=== PATIENT | male | born 1970 | race Caucasian/White ===

== ENCOUNTER 2017-06-26 04:32 | Emergency (ER) | payer OTHER ==
[~2017-06-26] VITALS: Ht 185.4 cm; Wt 179.2 kg
[~2017-06-26 04:32] MED LIST: AMBIEN10 MG PO; FISH OIL 1,4001 EACH PO; NEXIUM40 MG PO; ZYRTEC10 MG PO
[2017-06-26] MEDS ORDERED: ASPIRIN 81 MG CHEW TAB PO ONE (05:00)
[2017-06-26 05:09] LABS: BASOPHILS # (AUTO) 0.1 (0.0-0.1); BASOPHILS % 0.6 % (0.0-1.0); EOSINOPHILS # (AUTO) 0.1 (0.0-0.4); EOSINOPHILS % 0.7 % (0.0-6.0); HEMATOCRIT 56.3 % (38.2-49.6); HEMOGLOBIN 17.3 g/dL (14.0-18.0); KETONES,URINE TRACE (NEGATIVE); LEUKOCYTE ESTERASE ,URINE 1+ (NEGATIVE); LYMPHOCYTES # (AUTO) 1.8 (1.0-3.2); MEAN CORPUSCULAR HEMOGLOBIN 25.6 pg (28-32); MEAN CORPUSCULAR HGB CONC 30.7 g/dL (31-35); MEAN CORPUSCULAR VOLUME 83.3 fL (81-99); MONOCYTES # (AUTO) 1.1 (0.2-0.8); MONOCYTES % 8.1 % (4.4-11.3); NEUTROPHILS # (AUTO) 10.3 (2.1-6.9); NEUTROPHILS % 76.4 % (38.7-80.0); NITRITE,URINE NEGATIVE (NEGATIVE); PLATELET COUNT 323 x10e3/uL (140-360); RED BLOOD COUNT 6.76 x10e6/uL (4.3-5.7); RED CELL DISTRIBUTION WIDTH 19.6 % (11.7-14.4); URINE UROBILINOGEN 4 mg/dL (0.2 - 1)
[2017-06-26 05:10] LABS: BILIRUBIN,URINE 1+ (NEGATIVE); CLARITY,URINE CLEAR (CLEAR); COLOR,URINE AMBER (YELLOW); PROTEIN,URINE DIPSTICK 1+ (NEGATIVE)
[2017-06-26 05:15] LABS: BACTERIA,URINE FEW /HPF; EPITHELIAL CELLS,URINE FEW /LPF; RBC,URINE 0-5 /HPF (0-5)
[2017-06-26 05:18] LABS: INR 0.91; PARTIAL THROMBOPLASTIN TIME 23.9 seconds (23.8-35.5); PROTHROMBIN TIME 12.7 seconds (11.9-14.5)
[2017-06-26 05:27] LABS: ALBUMIN 3.5 g/dL (3.5-5.0); ANION GAP 12.5 mmol/L (8-16); CALCIUM 8.6 mg/dL (8.4-10.2); CREATININE, SERUM 1.39 mg/dL (0.72-1.25); POTASSIUM 4.5 mmol/L (3.5-5.1)
[2017-06-26 05:33] LABS: TROPONIN I 0.007 ng/mL (0-0.300)
--- NOTE | 2017-06-26 05:36 | Diagnostic Imaging Report ---
EXAM: CHEST 2 VIEWS, PA and lateral ORDER DATE: 06/26/2017 4:59 AM TIME STAMP ON EXAM: 0508 hours INDICATION: Left chest wall pain COMPARISON: None FINDINGS: Limited lateral view secondary to motion. LINES/TUBES: None LUNGS: No consolidations or edema. PLEURA: No effusions or pneumothorax. HEART AND MEDIASTINUM: Normal size and contour. BONES AND SOFT TISSUES: Healing left lateral eighth rib fracture. IMPRESSION: No acute cardiopulmonary abnormality. Healing left lateral eighth rib fracture. Signed by: Dr. Lita Mack M.D. on 06/26/2017 5:33 AM
[2017-06-26] MEDS ORDERED: KETOROLAC TROMETHAMINE 30 MG/ML VIAL IV STA (06:24)
[2017-06-26] MEDS ORDERED: CEFTRIAXONE SOD 1 GM VIAL IV STA (06:26)
[2017-06-26] MEDS ORDERED: SODIUM CHLORIDE 0.9% 500ML 500 ML IV ONE (06:30)
--- NOTE | 2017-06-26 07:23 | Diagnostic Imaging Report ---
PROCEDURE: CT ABDOMEN AND PELVIS WITHOUT CONTRAST COMPARISON:None. INDICATIONS:Left flank pain. Stone protocol. TECHNIQUE: Stone protocol Volumetric CT abdomen and pelvis. No intravenous or enteric contrast. Multiplanar reformatted images. DLP: 1392.01 FINDINGS: Clear lung bases. No pleural effusions. Normal heart size. Liver: Normal Gallbladder: Normal. No bile duct dilation. Pancreas: Normal Spleen: Span 17 cm. Otherwise, normal Adrenal glands: Normal Kidneys: Normal. No stones. Multiple punctate vascular calcifications (for example, image 84, series 3). Ureters and urinary bladder: Normal Prostate and seminal vesicles: Normal Bowel: Normal caliber. Diverticulosis predominantly in the descending and sigmoid colon. Peritoneum: Normal Vasculature: Normal caliber. Mild scattered atherosclerosis. Skeleton: Intact. Soft tissues: Midline superficial scar. Otherwise, normal. Study limitations: Body habitus resulting gantry abutment with subsequent photon deprivation and beam hardening artifact. CONCLUSION: 1. No evidence of nephrolithiasis. 2. Splenomegaly. 3. Diverticulosis. No evidence of diverticulitis. Dictated by: Sher Chase M.D. on 06/26/2017 at 7:33 Electronically approved by: Sher Chase M.D. on 06/26/2017 at 7:33
== END 2017-06-26 08:23 | disposition home or self-care (01) ==
LOC: ER 04:32
DX: R07.89 Other chest pain (principal); R05 Cough; J20.9 Acute bronchitis, unspecified; S22.32XA Fracture of one rib, left side, initial encounter for closed fracture; R10.9 Unspecified abdominal pain; N30.90 Cystitis, unspecified without hematuria
CPT/HCPCS: 36415; 71020; 74176; 80053; 81001; 82550; 82553; 83735; 83880; 84484; 85025; 85379; 85610; 85730; 87086; 93005; 99284; J0696; J1885; J7040; 71046

== ENCOUNTER → 2017-10-08 | Day surgery (SDC) | payer OTHER ==
[2017-10-07 11:49] LABS: BASOPHILS # (AUTO) 0.1 (0.0-0.1); BASOPHILS % 0.5 % (0.0-1.0); EOSINOPHILS # (AUTO) 0.1 (0.0-0.4); HEMATOCRIT 52.1 % (38.2-49.6); HEMOGLOBIN 16.1 g/dL (14.0-18.0); LYMPHOCYTES # (AUTO) 1.6 (1.0-3.2); LYMPHOCYTES % 16.8 % (18.0-39.1); MEAN CORPUSCULAR HEMOGLOBIN 25.5 pg (28-32); MEAN CORPUSCULAR HGB CONC 30.9 g/dL (31-35); MEAN CORPUSCULAR VOLUME 82.4 fL (81-99); MONOCYTES # (AUTO) 0.9 (0.2-0.8); MONOCYTES % 9.2 % (4.4-11.3); NEUTROPHILS % 71.9 % (38.7-80.0); PLATELET COUNT 250 x10e3/uL (140-360); RED BLOOD COUNT 6.32 x10e6/uL (4.3-5.7)
[2017-10-07 11:59] LABS: INR 0.99; PROTHROMBIN TIME 12.3 seconds (11.9-14.5)
[2017-10-07 12:09] LABS: ALANINE AMINOTRANSFERASE 39 IU/L (0-55); ALBUMIN 3.4 g/dL (3.5-5.0); ALBUMIN/GLOBULIN RATIO 0.9 (0.8-2.0); ALKALINE PHOSPHATASE 96 IU/L (40-150); ANION GAP 10.4 mmol/L (8-16); BLOOD UREA NITROGEN 13 mg/dL (7-26); BUN/CREATININE RATIO 10 (6-25); CALCIUM 9.3 mg/dL (8.4-10.2); CARBON DIOXIDE 31 mmol/L (22-29); CHLORIDE 104 mmol/L (98-107); CHOL/HDL RATIO 5.3 (3.9-4.7); CHOLESTEROL 160 MD/DL (0-199); CREATININE, SERUM 1.24 mg/dL (0.72-1.25); EST GLOMERULAR FILTRATION RATE > 60 ML/MIN (60-); GLUCOSE 100 mg/dL (74-118); HDL CHOLESTEROL 30 MG/DL (40-60); LDL CHOLESTEROL 93 MG/DL (60-130); POTASSIUM 4.4 mmol/L (3.5-5.1); SODIUM 141 mmol/L (136-145); TRIGLYCERIDES 186 MG/DL (0-149)
[2017-10-08] VITALS (7 sets, daily range): BP systolic 114–142; BP diastolic 73–101
[~2017-10-08] VITALS: Ht 185.4 cm; Wt 172.4 kg
[~2017-10-08] MED LIST changes: +ASPIRIN325 MG PO; +DEXILANT60 MG PO; +FENTANYL CITRATE/PF 100MCG/2 ML INJ ONE; +FISH OIL 1,2001 EACH PO; +FUROSEMIDE40 MG PO; +HEPARIN SOD (PORCINE) 1000 UNIT/ML 30ML ONE; +HEPARIN SOD/SOD CHLORIDE 0 ML ONE; +HEPARIN SOD/SOD CHLORIDE 2,000 ML ONE; +IOPAMIDOL 370 MG/ML 200 ML INFUS..BTL INJ ONE; +LIDOCAINE HCL 2% LOCAL 20 ML VIAL ONE; +MIDAZOLAM HCL 2 MG/2 ML VIAL ONE; +MILK THISTLE500 MG PO; +MULTIVITAMINS1 EAC7 PO; +NITROGLYCERIN/D5W 200 MCG/ML 250 ML ONE; +RANITIDINE HCL150 MG PO; +SODIUM CHLORIDE 0.9% 1000ML 1,000 ML ONE; +TESTOSTERO100 MG/1 M IM; +VERAPAMIL HCL 2.5 MG/ML 2 ML VIAL ONE; +[UNRECOGNIZED DRUG - OTHER] PO
--- OUTSIDE RECORDS SUMMARY | 2017-10-08 10:09 | XMS REPORT | Continuity of Care Document ---
Author Author [facility] Organization [facility] Address [address] [place] [address] Phone Unavailable Care Team Providers Care Freelance Recruiter Name Role Phone AMEENA HOANG MD PCP Insurance Providers Guarantor Lydia Terrazas Address [address] [place] [address] Email [email or web address] Payer [employer] Pos Policy Number [id number] Subscriber's Name Lydia Terrazas Relationship 18 Self / Same As Patient Group Number [id number] Group Name [employer] Effective Date 13 Advance Directives Directive Response Recorded Date/Time Does the patient have an advance directive? No 07/11/09 6:03am If yes, is advance directive on file with [facility]? No 07/11/09 6:03am If not on file with [facility] will patient provide a copy? No 08/25/16 1:42am Do you have a Directive to Physician? No 06/26/17 6:41am Do you have a Medical Power of Commercial Correspondent? No 06/26/17 6:41am Do you have an out of hospital Do Not Resuscitate Order? No 06/26/17 6:41am Do you have any special needs we should be aware of? No 06/26/17 6:41am Do you have a support person here with you today? No 06/26/17 6:41am Did patient receive Notice of Privacy Practices? Yes 06/26/17 6:41am Did patient receive patient rights and responsibilities? Yes 06/26/17 6:41am Problems No problem information available. Medications Current Home Medications Medication Dose Units Route Directions Days Qty Instructions Start Date Cetirizine Hcl (Zyrtec) 10 Mg Tablet 10 Mg Oral Daily THERAPEUTICALLY SUBSTITUTED WITH LORATADINE 10MG Esomeprazole Magnesium (Nexium) 40 Mg Capsule. 40 Mg Oral Daily PROTONIX THERAPEUTIC SUBSTITUTE FOR NEXIUM PER [facility] [place]-3/Dha/Epa/Fish Oil (Fish Oil 1,400 Mg Softgel) 1 Each Capsule. 2 Cap Oral Daily Zolpidem Tartrate (Ambien) 10 Mg Tablet 10 Mg Oral Bedtime as needed for Sleep 30 Tab Social History No social history information available. Hospital Discharge Instructions No hospital discharge instruction information available. Plan of Care Discharge Date 06/26/17 8:23am Disposition HOME, SELF-CARE Condition at Discharge Stable Instructions/Education Provided Bronchitis (Acute) - Adult Fractures - Rib Urinary Tract Infection - Men Forms Provided Work/School Excuse Prescriptions See Medication Section Referrals AMEENA HOANG MD Address: [address] [place] [id number] Additional Instructions/Education FOLLOW UP WITH PCP IN 3 DAYS. DRINK PLENTY OF FLUIDS. Functional Status No functional status information available. Allergies, Adverse Reactions, Alerts Allergen Type Severity Reaction Status Last Updated No Known Drug Allergies Allergy Mild Active 07/11/09 Immunizations No immunization information available. Vital Signs Acute Vital Signs Vital Response Date/Time Temperature (Fahrenheit) 97.5 degrees F (97.6 - 99.5) 03/03/2017 8:18pm Pulse Pulse Rate (adult) 80 bpm (60 - 90) 03/03/2017 8:18pm Respiratory Rate 14 bpm (12 - 24) 03/03/2017 8:18pm Blood Pressure 142/91 mm Hg 03/03/2017 8:18pm Height 6 ft 1 in 06/26/2017 4:40am Weight 395 lb 06/26/2017 4:40am Body Mass Index 52.1 kg/m^2 06/26/2017 4:40am Results Laboratory Results Test Name Result Units Flags Reference Collection Date/Time Result Date/ Time Comments White Blood Count 13.43 x10e3/uL H 4.8-10.8 06/26/2017 4:452017 5:10am Red Blood Count 6.76 x10e6/uL H 4.3-5.7 06/26/2017 4:4506/26/2017 5: 10am Hemoglobin 17.3 g/dL 14.0-18.0 06/26/2017 4:4506/26/2017 5:10am Hematocrit 56.3 % H 38.2-49.6 06/26/2017 4:4506/26/2017 5:10am Mean Corpuscular Volume 83.3 fL 81-99 06/26/2017 4:06/26/2017 5: 10am Mean Corpuscular Hemoglobin 25.6 pg L 28-32 06/26/2017 4:452017 5:10am Mean Corpuscular Hemoglobin Concent 30.7 g/dL L 31-35 06/26/2017 4:06/26/2017 5:10am Red Cell Distribution Width 19.6 % H 11.7-14.4 06/26/2017 4:2017 5:10am Platelet Count 323 x10e3/uL 140-360 06/26/2017 4:06/26/2017 5: 10am Neutrophils (%) (Auto) 76.4 % 38.7-80.0 06/26/2017 4:06/26/2017 5: 10am Lymphocytes (%) (Auto) 13.0 % L 18.0-39.1 06/26/2017 4:06/26/2017 5 :10am Monocytes (%) (Auto) 8.1 % 4.4-11.3 06/26/2017 4:06/26/2017 5: 10am Eosinophils (%) (Auto) 0.7 % 0.0-6.0 06/26/2017 4:06/26/2017 5: 10am Basophils (%) (Auto) 0.6 % 0.0-1.0 06/26/2017 4:4506/26/2017 5:10am IM GRANULOCYTES % 1.2 % H 0.0-1.0 06/26/2017 4:45am 06/26/2017 5:10am Neutrophils # (Auto) 10.3 H 2.1-6.9 06/26/2017 4:45am 06/26/2017 5: 10am Lymphocytes # (Auto) 1.8 1.0-3.2 06/26/2017 4:45am 06/26/2017 5:10am Monocytes # (Auto) 1.1 H 0.2-0.8 06/26/2017 4:45am 06/26/2017 5:10am Eosinophils # (Auto) 0.1 0.0-0.4 06/26/2017 4:45am 06/26/2017 5:10am Basophils # (Auto) 0.1 0.0-0.1 06/26/2017 4:45am 06/26/2017 5:10am Absolute Immature Granulocyte (auto 0.16 x10e3/uL H 0-0.1 06/26/2017 4: 45am 06/26/2017 5:10am Prothrombin Time 12.7 seconds 11.9-14.5 06/26/2017 4:45am 06/26/2017 5: 19am Prothromb Time International Ratio 0.91 06/26/2017 4:45am 2017 5:19am Oral Anticoagulant Therapy INR Values: 1. Low Intensity Therapy 1.5 - 2.0 2. Moderate Intensity Therapy 2.0 - 3.0 3. High Intensity Therapy(1) 2.5 - 3.5 4. High Intensity Therapy(2) 3.0 - 4.0 5. Panic Value INR > 5.0 Activated Partial Thromboplast Time 23.9 seconds 23.8-35.5 06/26/2017 4: 45am 06/26/2017 5:19am D-Dimer Quantitative (PE/DVT) 0.21 ug/mLFEU 0.00-0.45 06/26/2017 5:55am 06/26/2017 6:07am Urine Color MYRIAM H YELLOW 06/26/2017 4:45am 06/26/2017 5:10am Urine Clarity CLEAR CLEAR 06/26/2017 4:45am 06/26/2017 5:10am Urine Specific [place] 1.015 1.010-1.025 06/26/2017 4:45am 2017 5:10am Urine pH 6.5 5 - 7 06/26/2017 4:45am 06/26/2017 5:10am Urine Leukocyte Esterase 1+ H NEGATIVE 06/26/2017 4:45am 06/26/2017 5: 10am Urine Nitrite NEGATIVE NEGATIVE 06/26/2017 4:45am 06/26/2017 5:10am Urine Protein 1+ H NEGATIVE 06/26/2017 4:45am 06/26/2017 5:10am Urine Glucose (UA) NEGATIVE NEGATIVE 06/26/2017 4:45am 06/26/2017 5: 10am Urine Ketones TRACE H NEGATIVE 06/26/2017 4:45am 06/26/2017 5:10am Urine Urobilinogen 4 mg/dL H 0.2 - 1 06/26/2017 4:45am 06/26/2017 5: 10am Urine Bilirubin 1+ H NEGATIVE 06/26/2017 4:45am 06/26/2017 5:10am Confirmatory test currently unavailable. False positive results may occur. Urine Blood TRACE H NEGATIVE 06/26/2017 4:45am 06/26/2017 5:10am Urine WBC 6-10 /HPF H 0-5 06/26/2017 4:45am 06/26/2017 5:16am Urine RBC 0-5 /HPF 0-5 06/26/2017 4:45am 06/26/2017 5:16am Urine Bacteria FEW /HPF NONE 06/26/2017 4:45am 06/26/2017 5:16am Urine Epithelial Cells FEW /LPF NONE 06/26/2017 4:45am 06/26/2017 5: 16am Sodium Level 139 mmol/L 136-145 06/26/2017 4:45am 06/26/2017 5:30am Potassium Level 4.5 mmol/L 3.5-5.1 06/26/2017 4:45am 06/26/2017 5:30am Chloride Level 103 mmol/L 98-107 06/26/2017 4:45am 06/26/2017 5:30am Carbon Dioxide Level 28 mmol/L 22-29 06/26/2017 4:45am 06/26/2017 5: 30am Anion Gap 12.5 mmol/L 8-16 06/26/2017 4:45am 06/26/2017 5:30am Blood Urea Nitrogen 13 mg/dL 7-26 06/26/2017 4:4506/26/2017 5:30am Creatinine 1.39 mg/dL H 0.72-1.25 06/26/2017 4:45am 06/26/2017 5:30am BUN/Creatinine Ratio 9 6-25 06/26/2017 4:45am 06/26/2017 5:30am Estimat Glomerular Filtration Rate 55 ML/MIN L 60- 06/26/2017 4:45am 5:30am Ranges were taken from the National Kidney Disease Education Program and the National Kidney Foundation literature. Reference ranges: 60 or greater: Normal 16-59 (for 3 consecutive months): Chronic kidney disease 15 or less: Kidney failure Glucose Level 103 mg/dL 74-118 06/26/2017 4:45am 06/26/2017 5:30am Calcium Level 8.6 mg/dL 8.4-10.2 06/26/2017 4:4506/26/2017 5:30am Magnesium Level 2.2 MG/DL H 1.3-2.1 06/26/2017 4:4506/26/2017 5:22am Total Bilirubin 1.0 mg/dL 0.2-1.2 06/26/2017 4:4506/26/2017 5:30am Aspartate Amino Transf (AST/SGOT) 34 IU/L 5-34 06/26/2017 4:45am 2017 5:30am Alanine Aminotransferase (ALT/SGPT) 62 IU/L H 0-55 06/26/2017 4:45 5:30am Total Protein 7.0 g/dL 6.5-8.1 06/26/2017 4:45am 06/26/2017 5:30am Albumin 3.5 g/dL 3.5-5.0 06/26/2017 4:4506/26/2017 5:30am Globulin 3.5 g/dL 2.3-3.5 06/26/2017 4:45am 06/26/2017 5:30am Albumin/Globulin Ratio 1.0 0.8-2.0 06/26/2017 4:4506/26/2017 5: 30am Alkaline Phosphatase 69 IU/L 40-150 06/26/2017 4:45am 06/26/2017 5: 30am B-Type Natriuretic Peptide < 10.0 pg/mL 0-100 06/26/2017 4:45am 2017 5:30am Creatine Kinase 153 IU/L 30-200 06/26/2017 4:45am 06/26/2017 5:30am Creatine Kinase MB 4.00 ng/mL 0.00-5.00 06/26/2017 4:45am 06/26/2017 5: 34am Troponin I 0.007 ng/mL 0-0.300 06/26/2017 4:45am 06/26/2017 5:34am Procedures Procedure Status Date Provider(s) X-ray of chest, two views Active 02/01/17 OTIS CURRAN MD X-ray of chest, two views Active 06/26/[address] of abdomen and pelvis without contrast Active 06/26/17 GARRY AMADO MD Encounters Encounter Location Arrival/Admit Date Discharge/Depart Date Attending Provider Departed Emergency Room [facility] 06/26/17 4:32am 8:23am GARRY AMADO MD Registered Emergency Room [facility] 03/03/17 6:07pm GARRY AMADO MD Registered Clinic [facility] 02/01/17 8:27am AMEENA HOANG MD
--- OUTSIDE RECORDS SUMMARY | 2017-10-08 10:09 | XMS REPORT ---
Author Author [facility] Address Unknown Phone Unavailable Care Team Providers Care Antique Clocks Repairer Name Role Phone GARRY AMADO Unavailable Unavailable CORIN DURÁN Unavailable Unavailable AMEENA HOANG Unavailable Unavailable Problems This patient has no known problems. Allergies, Adverse Reactions, Alerts This patient has no known allergies or adverse reactions. Medications This patient has no known medications. Results Test Description Test Time Test Comments Text Results Atomic Results Result Comments CT ABDOMEN/PELVIS WO [place] [address] Patient Name: LYDIA TERRAZAS MR #: [id number] : 1970 Age/Sex: 46/M Req #: [id number] Adm Physician: Ordered by: GARRY AMADO MD Report #: [id number] Location: ER Room/Bed: Procedure: [id number] CT/CT ABDOMEN/PELVIS WO Exam Date: 06/26/17 Exam Time: 0707 REPORT STATUS: Signed PROCEDURE: CT ABDOMEN AND PELVIS WITHOUT CONTRAST COMPARISON: None. INDICATIONS: Left flank pain. Stone protocol. TECHNIQUE: Stone protocol Volumetric CT abdomen and pelvis. No intravenous or enteric contrast. Multiplanar reformatted images. DLP: 1392.01 FINDINGS: Clear lung bases. No pleural effusions. Normal heart size. Liver: Normal Gallbladder: Normal. No bile duct dilation. Pancreas: Normal Spleen: Span 17 cm. Otherwise, normal Adrenal glands: Normal Kidneys: Normal. No stones. Multiple punctate vascular calcifications (for example, image 84, series 3). Ureters and urinary bladder: Normal Prostate and seminal vesicles: Normal Bowel: Normal caliber. Diverticulosis predominantly in the descending and sigmoid colon. Peritoneum: Normal Vasculature: Normal caliber. Mild scattered atherosclerosis. Skeleton: Intact. Soft tissues: Midline superficial scar. Otherwise, normal. Study limitations: Body habitus resulting gantry abutment with subsequent photon deprivation and beam hardening artifact. CONCLUSION: 1. No evidence of nephrolithiasis. 2. Splenomegaly. 3. Diverticulosis. No evidence of diverticulitis. Dictated by: Sada Chase M.D. on 06/26/2017 at 7:33 Electronically approved by: Sada Chase M.D. on 06/26/2017 at 7:33 Dictated By: SADA CHASE MD 2 Transcribed By: ROBERTA on 06/26/17732 COPY TO: GARRY AMADO MD CHEST 2 VIEWS [place] [address] Patient Name: LYDIA TERRAZAS MR #: [id number] : 1970 Age/Sex: 46/M Req # : [id number] Adm Physician: Ordered by: GARRY AMADO MD Report #: [id number] Location: ER Room/Bed: Procedure: [id number] DX/CHEST 2 VIEWS Exam Date: 06/26/17 Exam Time: 0510 REPORT STATUS: Signed EXAM: CHEST 2 VIEWS, PA and lateral ORDER DATE: 06/26/2017 4:59 AM TIME STAMP ON EXAM: 0508 hours INDICATION: Left chest wall pain COMPARISON: None FINDINGS: Limited lateral view secondary to motion. LINES/TUBES: None LUNGS: No consolidations or edema. PLEURA : No effusions or pneumothorax. HEART AND MEDIASTINUM: Normal size and contour. BONES AND SOFT TISSUES: Healing left lateral eighth rib fracture. IMPRESSION: No acute cardiopulmonary abnormality. Healing left lateral eighth rib fracture. Signed by: Dr. Fercho Stokes M.D. on 06/26/2017 5:33 AM Dictated By: FERCHO STOKES MD 2 Transcribed By: CHAVEZ on 532 COPY TO: GARRY AMADO MD CHEST SINGLE (PORTABLE) [place] [address] Patient Name: LYDIA TERRAZAS MR #: [id number] : 1970 Age/Sex: 46/M Req #: [id number] Adm Physician: Ordered by: CORIN DURÁN MD Report #: [id number] Location: ER Room/Bed: Procedure: [id number] DX/CHEST SINGLE (PORTABLE) Exam Date: 03/03/17 Exam Time: 1830 REPORT STATUS: Signed EXAMINATION: Chest, CHEST SINGLE (PORTABLE) INDICATION: Chest pain COMPARISON : Chest 2 views 02/01/2017 FINDINGS: LINES: None. Heart : Normal cardiac silhouette. Vascular: The pulmonary vasculature is within normal limits. Mediastinum: No mediastinal, hilar, or axillary mass or lymphadenopathy. Lungs: No parenchymal mass. No focal consolidation. Bibasilar atelectasis. Pleura: No pleural effusion. No pneumothorax. Bones: No acute osseous abnormality. Soft tissues: Normal. Impression: No acute radiographic abnormality. Signed by: Dr. Yuri Nation M.D. on 03/03/2017 6:48 PM Dictated By: YURI NATION MD 47 Transcribed By: CHAVEZ on 03/03/171847 COPY TO: CORIN DURÁN MD CHEST 2 VIEWS [place] [address] Patient Name: LYDIA TERRAZAS MR #: [id number] : 1970 Age/Sex: 46/M Req # : [id number] Adm Physician: Ordered by: OTIS CURRAN MD Report #: [id number] Location: [facility] Room/Bed: Procedure: [id number] DX/CHEST 2 VIEWS Exam Date: 02/01/17 Exam Time : 1027 REPORT STATUS: Signed PROCEDURE: X-RAY CHEST, TWO VIEWS COMPARISON: 08/25/2016. INDICATIONS: SHORTNESS OF BREATH FINDINGS: The lungs are well-inflated. No focal airspace consolidation, pleural effusion, or pneumothorax. Tortuosity of the thoracic aorta with borderline enlargement of the cardiac silhouette and prominence of the central pulmonary vasculature. No acute osseous abnormality. CONCLUSION: Borderline cardiomegaly with pulmonary venous congestion. Dictated by : Shaw Celeste M.D. on 02/01/2017 at 10:55 Electronically approved by: Shaw Celeste M.D. on 02/01/2017 at 10:55 Dictated By: SHAW CELESTE MD 54 Transcribed By: ROBERTA on 02/01/171054 COPY TO: OTIS CURRAN MD
--- NOTE | 2017-10-29 12:41 | Operative Report ---
DATE OF PROCEDURE: October 08, 2017 INDICATIONS: Coronary artery disease. Abnormal stress test. PROCEDURES PERFORMED: 1. Left heart catheterization, selective coronary angiography. 2. Deployment of right wrist transradial band. COMPLICATIONS: None. RECOMMENDATIONS: Medical therapy. Access was obtained in the right radial artery using ultrasound guidance. A 5-Hebrew sheath was placed. Diagnostic coronary angiogram revealed mild coronary artery disease, less than 10% luminal stenosis. No critical stenosis or occlusions. Right wrist TR band applied. Patient discharged home same day. Job#: [id number]
== END | disposition home or self-care (01) ==
LOC: CATH LAB 10:07
PROVIDERS: ATTEND Internal Medicine Interventional Cardiology
DX: I25.118 Atherosclerotic heart disease of native coronary artery with other forms of angina pectoris (principal); R94.39 Abnormal result of other cardiovascular function study; Z01.812 Encounter for preprocedural laboratory examination; Z68.43 Body mass index [BMI] 50.0-59.9, adult; Z82.49 Family history of ischemic heart disease and other diseases of the circulatory system; Z82.3 Family history of stroke
CPT/HCPCS: 36415; 77002; 80053; 80061; 85025; 85610; 93458; C1887; J1644; J2001; J2250; J7030; Q9967; 36140

== ENCOUNTER → 2018-03-13 | Outpatient (CLI) | payer OTHER ==
[~2018-03-13] MED LIST changes: -FENTANYL CITRATE/PF 100MCG/2 ML INJ ONE; -HEPARIN SOD (PORCINE) 1000 UNIT/ML 30ML ONE; -HEPARIN SOD/SOD CHLORIDE 0 ML ONE; -HEPARIN SOD/SOD CHLORIDE 2,000 ML ONE; -IOPAMIDOL 370 MG/ML 200 ML INFUS..BTL INJ ONE; -LIDOCAINE HCL 2% LOCAL 20 ML VIAL ONE; -MIDAZOLAM HCL 2 MG/2 ML VIAL ONE; -NITROGLYCERIN/D5W 200 MCG/ML 250 ML ONE; -SODIUM CHLORIDE 0.9% 1000ML 1,000 ML ONE; -VERAPAMIL HCL 2.5 MG/ML 2 ML VIAL ONE
--- NOTE | 2018-03-13 12:09 | Diagnostic Imaging Report ---
Exam: Left foot series, 3 views. Clinical History: Left foot pain. Comparison: None. Findings: There is normal bone mineralization. Negative for fracture or dislocation. Joint spaces are preserved. Lis franc alignment is normal. There is a plantar calcaneal spur and mild Achilles enthesopathy. There is fragmentation of an os peroneum along the lateral foot near the fifth metatarsal base. Impression: No acute osseous abnormality. Fragmentation of os peroneum along the lateral hindfoot. This is a non-specific finding, however if there is pain in this location, this may reflect os peroneum syndrome, Signed by: Dr. Laura Pino MD on 03/13/2018 12:06 PM
== END ==
LOC: RAD 11:13
PROVIDERS: ATTEND Internal Medicine
DX: M79.672 Pain in left foot (principal)

== ENCOUNTER 2018-06-03 23:09 | Emergency (ER) | payer OTHER ==
[~2018-06-03] VITALS: Ht 185.4 cm; Wt 172.4 kg
[2018-06-04] MEDS ORDERED: TETANUS/DIPHTHERIA TOX ADULT 0.5 ML SYR IM ONE
[2018-06-04] MEDS ORDERED: BACITRACIN ZINC 0.9GM TP ONE (00:09)
== END 2018-06-04 00:41 | disposition home or self-care (01) ==
LOC: ER 23:09
DX: S61.216A Laceration without foreign body of right little finger without damage to nail, initial encounter (principal); W45.0XXA Nail entering through skin, initial encounter; Y92.008 Other place in unspecified non-institutional (private) residence as the place of occurrence of the external cause
CPT/HCPCS: 90471; 90714; 99282

== ENCOUNTER 2023-09-16 10:41 | Inpatient (IN) | payer SELFPAY ==
[~2023-09-16] VITALS: Ht 185.4 cm; Wt 108.0 kg
[2023-09-16] MEDS ORDERED: ONDANSETRON HCL INJ 2MG/ML 2ML 2 MG/ML VIAL ONE ×2 (11:29→19:48)
[2023-09-16] MEDS: SODIUM CHLORIDE 0.9% 1000ML 1,000 ML IV STA (11:30)
[2023-09-16] MEDS: ONDANSETRON HCL INJ 2MG/ML 2ML 2 MG/ML VIAL IV STA (11:30)
[2023-09-16] MEDS ORDERED: OCTREOTIDE ACETATE 500 MCG in SODIUM CHLORIDE 0.9% 250ML 250 ML IV SCH (11:30)
[2023-09-16] MEDS ORDERED: OCTREOTIDE ACETATE 1 ML ONE (11:30)
[2023-09-16] MEDS ORDERED: SODIUM CHLORIDE 0.9% 250ML 250 ML ONE (11:30)
[2023-09-16] MEDS ORDERED: OCTREOTIDE ACETATE 0.05 MG/ML AMP ONE ×2 (11:30→19:48)
[2023-09-16] MEDS: OCTREOTIDE ACETATE 0.05 MG/ML AMP IV ONE (11:30)
[2023-09-16] MEDS ORDERED: SODIUM CHLORIDE 0.9% 1000ML 1,000 ML ONE ×2 (11:30→12:25)
[2023-09-16] MEDS: OCTREOTIDE ACETATE 500 MCG in SODIUM CHLORIDE 0.9% 250ML 250 ML IV SCH (11:32)
[2023-09-16 11:36] LABS: BASOPHILS # (AUTO) 0.1 (0.0-0.1); BASOPHILS % 0.7 % (0.0-1.0); EOSINOPHILS # (AUTO) 0.1 (0.0-0.4); EOSINOPHILS % 0.4 % (0.0-6.0); HEMATOCRIT 38.7 % (38.2-49.6); HEMOGLOBIN 12.8 g/dL (14.0-18.0); LYMPHOCYTES # (AUTO) 1.1 (1.0-3.2); MEAN CORPUSCULAR HEMOGLOBIN 28.2 pg (28-32); MEAN CORPUSCULAR HGB CONC 33.1 g/dL (31-35); MEAN CORPUSCULAR VOLUME 85.2 fL (81-99); MONOCYTES # (AUTO) 0.6 (0.2-0.8); NEUTROPHILS # (AUTO) 9.3 (2.1-6.9); NEUTROPHILS % 76.8 % (38.7-80.0); PLATELET COUNT 185 x10e3/uL (140-360); RED BLOOD COUNT 4.54 x10e6/uL (4.3-5.7); WHITE BLOOD COUNT 12.11 x10e3/uL (4.8-10.8)
[2023-09-16 11:53] LABS: INR 0.93; PROTHROMBIN TIME 13.1 seconds (11.9-14.5)
[2023-09-16 11:54] LABS: PARTIAL THROMBOPLASTIN TIME 25.2 seconds (23.8-35.5)
[2023-09-16 11:56] LABS: ALANINE AMINOTRANSFERASE 51 IU/L (0-55); ALBUMIN 2.3 g/dL (3.5-5.0); ALBUMIN/GLOBULIN RATIO 0.8 (0.8-2.0); ALKALINE PHOSPHATASE 76 IU/L (40-150); ANION GAP 11.8 mmol/L (8-16); BILIRUBIN,TOTAL 1.6 mg/dL (0.2-1.2); BLOOD UREA NITROGEN 17 mg/dL (7-26); BUN/CREATININE RATIO 15 (6-25); CALCIUM 7.9 mg/dL (8.4-10.2); CARBON DIOXIDE 26 mmol/L (22-29); CHLORIDE 108 mmol/L (98-107); CREATINE KINASE 21 IU/L (30-200); CREATININE, SERUM 1.14 mg/dL (0.72-1.25); EST GLOMERULAR FILTRATION RATE 78 ML/MIN (>=60); GLUCOSE 91 mg/dL (74-118); LIPASE 260 U/L (8-78); MAGNESIUM 1.3 MG/DL (1.3-2.1); POTASSIUM 4.8 mmol/L (3.5-5.1); SODIUM 141 mmol/L (136-145); TOTAL PROTEIN 5.2 g/dL (6.5-8.1)
[2023-09-16 12:03] LABS: TROPONIN I < 0.001 ng/mL (0-0.300)
[2023-09-16] MEDS ORDERED: DIATRIZOATE MEGL/DIATRIZOA SOD 30 ML BTL PO ONE (12:18)
[2023-09-16] MEDS: SODIUM CHLORIDE 0.9% 1000ML 1,000 ML IV SCH (12:29)
[2023-09-16] MEDS ORDERED: IOPAMIDOL 370 MG/ML 100 ML INFUS..BTL INJ ONE (12:39)
[2023-09-16 14:35] LABS: BASOPHILS # (AUTO) 0.1 (0.0-0.1); BASOPHILS % 0.7 % (0.0-1.0); EOSINOPHILS # (AUTO) 0.1 (0.0-0.4); EOSINOPHILS % 0.5 % (0.0-6.0); HEMOGLOBIN 12.7 g/dL (14.0-18.0); LYMPHOCYTES # (AUTO) 1.4 (1.0-3.2); LYMPHOCYTES % 10.7 % (18.0-39.1); MEAN CORPUSCULAR HEMOGLOBIN 28.2 pg (28-32); MEAN CORPUSCULAR HGB CONC 32.6 g/dL (31-35); MEAN CORPUSCULAR VOLUME 86.7 fL (81-99); MONOCYTES # (AUTO) 0.6 (0.2-0.8); MONOCYTES % 4.9 % (4.4-11.3); NEUTROPHILS # (AUTO) 9.8 (2.1-6.9); NEUTROPHILS % 74.8 % (38.7-80.0); PLATELET COUNT 199 x10e3/uL (140-360); WHITE BLOOD COUNT 13.05 x10e3/uL (4.8-10.8)
[2023-09-16] MEDS: DIATRIZOATE MEGL/DIATRIZOA SOD 30 ML BTL PO ONE (16:07)
[2023-09-16] MEDS: IOPAMIDOL 370 MG/ML 100 ML INFUS..BTL INJ ONE (16:07)
[2023-09-16 16:31] VITALS: BP 120/76; PULSE 86; RESP 18; TEMP 98.1; O2SAT 96
[2023-09-16 16:32] VITALS: BP 120/76; PULSE 87; RESP 18; TEMP 98.1; O2SAT 98
[2023-09-16] MEDS ORDERED: ASPIRIN81 MG PO (17:01)
[2023-09-16] MEDS ORDERED: OCTREOTIDE ACETATE 500 MCG/ML VIAL ONE (19:48)
[2023-09-16] MEDS ORDERED: SODIUM CHLORIDE 0.9% 1000 ML BAG ONE (19:48)
[2023-09-16] MEDS ORDERED: SODIUM CHLORIDE 0.9% INJ 250 ML BAG ONE (19:48)
[2023-09-16 20:37] VITALS: BP 131/91; PULSE 89; RESP 20; TEMP 98.4; O2SAT 98
[2023-09-16 21:00] VITALS: BP 131/91; PULSE 89; RESP 20; TEMP 98.4; O2SAT 98
[2023-09-17] VITALS: BP 131/91; PULSE 74; RESP 18; TEMP 98.2; O2SAT 97
[2023-09-17 04:00] VITALS: BP 120/79; PULSE 67; RESP 20; TEMP 98.7; O2SAT 95
[2023-09-17 05:58] LABS: ALBUMIN/GLOBULIN RATIO 0.9 (0.8-2.0); ANION GAP 7.9 mmol/L (8-16); BILIRUBIN,TOTAL 1.5 mg/dL (0.2-1.2); CALCIUM 7.4 mg/dL (8.4-10.2); CREATININE, SERUM 1.12 mg/dL (0.72-1.25); POTASSIUM 4.9 mmol/L (3.5-5.1); TOTAL PROTEIN 4.3 g/dL (6.5-8.1)
[2023-09-17] MEDS ORDERED: SODIUM CHLORIDE 0.9% 1000 ML BAG ONE ×2 (09:17→10:36)
[2023-09-17 09:33] VITALS: BP 131/74; PULSE 74; RESP 18; TEMP 97.9; O2SAT 95
[2023-09-17] MEDS ORDERED: SODIUM CHLORIDE 0.9% INJ 250 ML BAG ONE (10:36)
[2023-09-17] MEDS ORDERED: OCTREOTIDE ACETATE 0.05 MG/ML AMP ONE (10:36)
[2023-09-17] MEDS ORDERED: OCTREOTIDE ACETATE 0.1 MG/ML 100MCG AMP ONE ×2 (10:36→11:25)
[2023-09-17] MEDS ORDERED: METOCLOPRAMIDE HCL 10 MG/2ML VIAL ONE (11:12)
[2023-09-17] MEDS ORDERED: LIDOCAINE HCL 2% LOCAL INJ 5 ML SDV VIAL INJ ONE (11:12)
[2023-09-17] MEDS ORDERED: DEXMEDETOMIDINE HCL 200 MCG/2 ML VIAL ONE (11:12)
[2023-09-17] MEDS ORDERED: PROPOFOL IV EMULSION 10 MG/ML 20 ML VIAL ONE (11:12)
[2023-09-17 12:59] VITALS: BP 132/83; PULSE 78; RESP 17; TEMP 97.8; O2SAT 96
[2023-09-17 15:44] VITALS: BP 124/66; PULSE 69; RESP 18; TEMP 97.9; O2SAT 95
[2023-09-17] MEDS ORDERED: MIDAZOLAM HCL 2 MG/2 ML VIAL ONE (16:27)
== END 2023-09-17 18:54 | disposition home or self-care (01) | DRG 391 ==
LOC: ER 10:56 → ERHOLD 12:14 → MED/SURG2 16:22
PROVIDERS: ADMIT Internal Medicine; ATTEND Internal Medicine
PROC: 0DB68ZX Excision of Stomach, Via Natural or Artificial Opening Endoscopic, Diagnostic (ICD-10-PCS; principal; 2023-09-16)
PROC: 0DB78ZX Excision of Stomach, Pylorus, Via Natural or Artificial Opening Endoscopic, Diagnostic (ICD-10-PCS; 2023-09-16)
DX: K29.70 Gastritis, unspecified, without bleeding (principal); K85.90 Acute pancreatitis without necrosis or infection, unspecified; K22.10 Ulcer of esophagus without bleeding; E66.01 Morbid (severe) obesity due to excess calories; G25.81 Restless legs syndrome; G47.30 Sleep apnea, unspecified; K21.9 Gastro-esophageal reflux disease without esophagitis; Z79.890 Hormone replacement therapy; Z79.82 Long term (current) use of aspirin; Z98.84 Bariatric surgery status; Z82.49 Family history of ischemic heart disease and other diseases of the circulatory system; D72.829 Elevated white blood cell count, unspecified; I10 Essential (primary) hypertension; K44.9 Diaphragmatic hernia without obstruction or gangrene
CPT/HCPCS: 36415; 43239; 71045; 74177; 80053; 82550; 83690; 83735; 84484; 85025; 85610; 85730; 86850; 86900; 87400; 88305; 88312; 88342; 93005; 99284; J2001; J2250; J2353; J2354; J2405; J2765; J7030; J7050; Q9963; Q9967; U0002

== ENCOUNTER → 2024-04-21 | Outpatient (REF) | payer OTHER ==
[~2024-04-21] MED LIST changes: +ASPIRIN81 MG PO
== END ==
LOC: DX 08:30
PROVIDERS: ATTEND Internal Medicine
DX: R10.0 Acute abdomen (principal)
CPT/HCPCS: 74246

== ENCOUNTER → 2024-05-11 | Outpatient (REF) | payer OTHER | LOC: NM 04-24 08:01 | PROVIDERS: ATTEND Internal Medicine | DX: R10.0 Acute abdomen (principal) | CPT/HCPCS: 78227; A9537 ==